=== PATIENT | male | born 2000 | race Caucasian/White ===

== ENCOUNTER 2022-10-14 18:24 | Inpatient (IN) ==
[2022-10-14] MEDS: Propofol 10 mg/ml 100 ML BTL 1,000 MG/100 ML BTL IV SCH ×2 (18:30→23:18)
[2022-10-14] MEDS ORDERED: NS 0.9% 1000 ml BAG 1,000 ML IV ONE (18:33)
[2022-10-14 18:41] LABS: ABS Eosinophils 0.1 10^3/ul (0-0.6); ABS Lymphocytes 2.2 10^3/ul (1.0-4.8); ABS Monocytes 0.3 10^3/ul (0-0.8); ABS Neutrophils 6.5 10^3/ul (1.5-7.7); Eosinophil % 0.6 %; Hematocrit 47 % (42-52); Hemoglobin 16.3 g/dL (14.0-18.0); Lymphocyte % 24.3 %; Mean Corpuscular HGB Conc 35 g/dL (31-36); Mean Corpuscular Hemoglobin 32 pg (27-31); Mean Corpuscular Volume 92 fL (80-94); Mean Platelet Volume 8.5 fL (7.4-10.4); Nucleated Red Blood Cells % 0.1; Platelet Count 254 10^3/uL (150-450); Red Blood Count 5.11 10^6 /uL (4.18-5.48); Red Cell Distribution Width 13 % (10-15); White Blood Count 9.2 10^3/uL (3.5-10.8)
[2022-10-14 19:22] LABS: ALT 15 U/L (7-52); Albumin 4.8 g/dL (3.2-5.2); Albumin/Globulin Ratio 2.4 (1-3); Alcohol, S 374 mg/dL (<13); Alkaline Phosphatase 57 U/L (35-149); Blood Urea Nitrogen 13 mg/dL (6-24); CO2 Carbon Dioxide 26 mmol/L (22-32); Calcium 8.7 mg/dL (8.6-10.3); Chloride 99 mmol/L (101-111); Creatinine, Serum 0.96 mg/dL (0.67-1.17); Glucose 105 mg/dL (70-100); Sodium 134 mmol/L (135-145); Total Protein 6.8 g/dL (6.4-8.9)
[2022-10-14 19:55] LABS: Anion Gap 9 mmol/L (2-11)
[2022-10-14 19:55] LABS: Urine Benzodiazepine Screen None Detected (None Detect); Urine Cannabinoids Screen None Detected (None Detect); Urine Opiates Screen None Detected (None Detect)
[2022-10-14] MEDS ORDERED: Piperacillin/Tazobac ADVAN 3.375 GM in NS 0.9% 100 ml BAG 100 ML IV ONE (20:52)
[2022-10-14] MEDS ORDERED: Zosyn per Pharmacy NOTE FOLLOW UP SCH (21:00)
[2022-10-14] MEDS ORDERED: Pantoprazole VIAL 40 MG VIAL IV SCH (22:00)
[2022-10-14] MEDS ORDERED: Enoxaparin 40 MG/0.4 ML SYR SUBCUT SCH (22:00)
[2022-10-14] MEDS ORDERED: Midazolam 2 mg/2 ml VIAL 1 mg/ml 2 ml VIAL (2 mg) IV SLOW PU ONE (22:16)
[2022-10-14] MEDS ORDERED: Midazolam 2 mg/2 ml VIAL 1 mg/ml 2 ml VIAL (2 mg) ONE (22:17)
[2022-10-14] MEDS: Chlorhexidine MOUTHWASH 0.12% 15 ML UDC SWISH SPIT SCH (22:22)
[2022-10-14] MEDS ORDERED: Midazolam 2 mg/2 ml VIAL 1 mg/ml 2 ml VIAL (2 mg) IV SLOW PU PRN (22:27)
[2022-10-14] MEDS: Lactated Ringers 1000 ml BAG 1,000 ML IV SCH (22:55)
[2022-10-15] MEDS: Chlorhexidine MOUTHWASH 0.12% 15 ML UDC SWISH SPIT SCH ×2 (02:40→06:03)
[2022-10-15] MEDS ORDERED: ZOSYN 3.375 GM Q8H per EXTENDED INFUSION IV SCH (04:00)
[2022-10-15] MEDS: Propofol 10 mg/ml 100 ML BTL 1,000 MG/100 ML BTL IV SCH (04:39)
[2022-10-15 05:07] LABS: ABS Lymphocytes 3.2 10^3/ul (1.0-4.8); ABS Monocytes 0.5 10^3/ul (0-0.8); ABS Neutrophils 7.3 10^3/ul (1.5-7.7); Eosinophil % 0.4 %; Hematocrit 45 % (42-52); Hemoglobin 15.3 g/dL (14.0-18.0); Lymphocyte % 28.9 %; Mean Corpuscular HGB Conc 34 g/dL (31-36); Mean Corpuscular Hemoglobin 32 pg (27-31); Mean Corpuscular Volume 94 fL (80-94); Mean Platelet Volume 8.9 fL (7.4-10.4); Nucleated Red Blood Cells % 0.1; Platelet Count 239 10^3/uL (150-450); Red Blood Count 4.81 10^6 /uL (4.18-5.48); Red Cell Distribution Width 14 % (10-15); White Blood Count 11.1 10^3/uL (3.5-10.8)
[2022-10-15 05:41] LABS: Alcohol, S 176 mg/dL (<13); Anion Gap 7 mmol/L (2-11); Blood Urea Nitrogen 11 mg/dL (6-24); CO2 Carbon Dioxide 28 mmol/L (22-32); Calcium 8.3 mg/dL (8.6-10.3); Chloride 108 mmol/L (101-111); Creatinine, Serum 1.06 mg/dL (0.67-1.17); Glucose 83 mg/dL (70-100); Magnesium 2.1 mg/dL (1.9-2.7); Potassium 4.1 mmol/L (3.5-5.0); Sodium 143 mmol/L (135-145)
[2022-10-15] MEDS: Lactated Ringers 1000 ml BAG 1,000 ML IV SCH (06:03)
[2022-10-15 09:40] LABS: Salicylate < 2.50 mg/dL (<30)
[2022-10-15 20:40] LABS: Rapid COVID-19 Molecular Undetected (Undetected)
[2022-10-16 08:47] LABS: ABS Basophils 0.1 10^3/ul (0-0.2); ABS Eosinophils 0.2 10^3/ul (0-0.6); ABS Lymphocytes 2.1 10^3/ul (1.0-4.8); ABS Monocytes 0.9 10^3/ul (0-0.8); ABS Neutrophils 5.5 10^3/ul (1.5-7.7); Eosinophil % 1.9 %; Hematocrit 44 % (42-52); Hemoglobin 15.4 g/dL (14.0-18.0); Lymphocyte % 24.3 %; Mean Corpuscular HGB Conc 35 g/dL (31-36); Mean Corpuscular Hemoglobin 32 pg (27-31); Mean Corpuscular Volume 93 fL (80-94); Mean Platelet Volume 9.3 fL (7.4-10.4); Platelet Count 220 10^3/uL (150-450); Red Blood Count 4.74 10^6 /uL (4.18-5.48); Red Cell Distribution Width 13 % (10-15); White Blood Count 8.7 10^3/uL (3.5-10.8)
[2022-10-16 08:52] LABS: Albumin/Globulin Ratio 1.9 (1-3); Calcium 9.3 mg/dL (8.6-10.3); Creatinine, Serum 1.08 mg/dL (0.67-1.17); Globulin 2.1 g/dL (2-4); Potassium 4.4 mmol/L (3.5-5.0); Total Bilirubin 3.6 mg/dL (0.2-1.0); Total Protein 6.1 g/dL (6.4-8.9); eGFR CKD-EPI 100.8 (>60)
[2022-10-16 11:11] LABS: C Reactive Protein 27.56 mg/L (<8.01)
[2022-10-16 12:12] LABS: Hepatitis B Surface Antigen Nonreactive (Nonreactive)
[2022-10-16 12:18] LABS: Hepatitis A Ab IgM Negative (Negative); Hepatitis B Core IgM Nonreactive (Nonreactive)
[2022-10-16 12:30] LABS: Hepatitis C Antibody Negative (Negative)
[2022-10-16 13:18] LABS: Albumin 4.1 g/dL (3.2-5.2); Albumin/Globulin Ratio 1.8 (1-3); Direct Bilirubin 0.1 mg/dL (0.03-0.18); Globulin 2.3 g/dL (2-4); Indirect Bilirubin 3.7 mg/dL (0.3-1.0); Total Bilirubin 3.8 mg/dL (0.2-1.0); Total Protein 6.4 g/dL (6.4-8.9)
[2022-10-16 14:49] VITALS: BP 150/76
== END 2022-10-16 15:55 | disposition home or self-care (01) | DRG 775 ==
LOC: ED 18:24 → EDHOLD 20:44 → ICU 21:30 → MED 10-15 20:33
PROVIDERS: ADMIT Internal Medicine; ATTEND Internal Medicine